=== PATIENT | female | born 1950 | race Caucasian/White ===

== ENCOUNTER 2016-12-20 11:00 | Outpatient (CLI) | payer OTHER ==
[~2016-12-20] VITALS: Ht 157.5 cm; Wt 60.9 kg
[2016-12-20 11:06] VITALS: BP 142/72; PULSE 84; RESP 16; Ht 157.5 cm; Wt 60.9 kg
--- NOTE | 2016-12-20 12:22 | PN ---
Date/Time of Note Date/Time of Note DATE: 12/20/16 TIME: 12:18 Assessment/Plan Assessment/Plan Assessment/Plan [facility] Progress Note Date of Service: 12/20/16 Today's Impression & Plan: Overall stable and doing well post lap appy for severe acute appendicitis. Abd remains benign and patient shows no obvious post operative complication or wound issues. No indication for acute surgical intervention. - F/u with PCP (possible consideration for further pulmonary testing and allergy tests) - F/u with us prn Thank you very much for allowing us to participate in the care of this very nice patient and wonderful family. If there are any questions, please feel free to contact me at . Please note: Spelling or grammatical errors in this note are likely due to EHR/ dictation systems and are not reflective of patient care quality. Also please note that the dictation timestamp of this note does not necessarily reflected time of the visit for this service. Updated Clinical Summary: The patient is a very pleasant 66-year-old lady with comorbid issues including BMI 26 as well as hypercholesterolemia, hypertension, and diabetes, who was admitted through the emergency department at [facility] with right lower quadrant abdominal pain associated with normal white blood cell count, but a CT scan that was consistent with acute appendicitis with an appendicolith without any evidence of perforation. Note that her admission lactic acid level is 4.7 and a few hours later it was 3.6. Her urinalysis was normal. Her white blood cell count was 7.6. Platelets 152. Liver function and injury parameters were normal. The patient demonstrated what appeared to be an anaphylactic reaction to Zosyn (no reported allergies prior to this) and she needed resuscitation with epinephrine administration and close pulmonary monitoring. S/p lap appy 12/01/16 with final diagnosis of acute appendicitis. Post op wheezing and allergic type reaction. Improved with diuresis and medical treatment. D/c home 12/07/16. COMORBIDITIES: 1. BMI 25. 2. Hypertension. 3. Hypercholesterolemia. 4. Diabetes mellitus. 5. Possible anaphylactic reaction to Zosyn. 6. Hepatomegaly with fatty infiltration. 7. Scattered aortoiliac atherosclerosis on CT scan abdomen and pelvis 2016. 8. S/p lap appy 12/01/16 with final diagnosis of acute appendicitis. Subjective: No major events or complaints since discharge. No major pain complaints and no longer needing pain medications. No N/V, SOB or CP. + bowel activity Objective: Vitals: reviewed; please also see EHR Physical Exam: Lungs: breathing comfortably without tachypnea; - wheezing; no audible rales or rhonchi on gross exam Abd: Soft, non-tender, and non-distended; no peritoneal signs or guarding; incisions c/d/i w/o obvious e/e/d/h. Skin: Appears pink and feels warm to touch. Neuro: Awake, alert and follows commands appropriately; face is not swollen; L arm is not swollen Exam/Review of Systems Vital Signs Vitals Vital Signs Date Time Temp Pulse Resp B/P Pulse Ox O2 Delivery O2 Flow Rate FiO2 12/20/16 11:06 98.0 84 16 142/72 96 Room Air ROSARIO COOMBS M.D. December 20, 2016 12:22
== END 2016-12-20 16:45 | disposition home or self-care (01) ==
LOC: HPC 11:00
PROVIDERS: ATTEND Transplant Surgery
DX: K35.80 Unspecified acute appendicitis (principal); I10 Essential (primary) hypertension; E11.9 Type 2 diabetes mellitus without complications; E78.00 Pure hypercholesterolemia, unspecified
CPT/HCPCS: G0463